=== PATIENT | male | born 1990 | race Caucasian/White ===

== ENCOUNTER 2016-10-12 21:15 | Emergency (ER) | payer OTHER ==
[2016-10-12 21:25] VITALS: BP 149/90
[2016-10-12] MEDS ORDERED: oxyCODONE/Acetamin 5/325 MG* TAB PO ONE (21:27)
--- NOTE | 2016-10-12 21:44 | ED ---
Upper Extremity Pain - HPI Summary HPI Summary: 26 M presents with right hand pain s/p falling on hand. He has a previous fracture to this hand and was just taken out of the cast 2 months ago. He was suppose to have surgery for a ligament but decided to do nonoperative course. He denies any numbness or tingling. He has not taken anything for pain. He is right handed. - History of Current Complaint Chief Complaint: EDExtremityUpper Stated Complaint: FALL/RIGHT ARM/HAND SWOLLEN Time Seen by Provider: 10/12/16 21:20 - Allergies/Home Medications Allergies/Adverse Reactions: Allergies Allergy/AdvReac Type Severity Reaction Status Date / Time No Known Allergies Allergy Verified 10/12/16 21:20 PMH/Surg Hx/FS Hx/Imm Hx Endocrine/Hematology History: Denies: Hx Anticoagulant Therapy Respiratory History: Denies: Hx Asthma Infectious Disease History: No Infectious Disease History: Denies: Traveled Outside the [place] in Last 30 Days - Family History Known Family History: Negative: Cardiac Disease - Social History Alcohol Use: None Substance Use Type: Reports: None Smoking Status (MU): Smoker, Current Status Unknown Review of Systems Negative: Fever Negative: Chest Pain Negative: Shortness Of Breath Positive: Myalgia - right hand, Edema - of right hand All Other Systems Reviewed And Are Negative: Yes Physical Exam Triage Information Reviewed: Yes Vital Signs On Initial Exam: Initial Vitals Temp Pulse Resp BP Pulse Ox 98.7 F 69 16 149/90 100 10/12/16 21:17 10/12/16 21:17 10/12/16 21:17 10/12/16 21:17 10/12/16 21:17 Vital Signs Reviewed: Yes Appearance: Positive: Well-Appearing Skin: Positive: Warm, Dry Head/Face: Positive: Normal Head/Face Inspection Eyes: Positive: Normal, Conjunctiva Clear ENT: Positive: Normal ENT inspection, Pharynx normal, TMs normal Respiratory/Lung Sounds: Positive: Clear to Auscultation, Breath Sounds Present Cardiovascular: Positive: Normal, RRR Musculoskeletal: Positive: Strength/ROM Intact - of right wrist, Limited @ - middle, ring, and pinky finger due to pain, Other - no snuff box tenderness, good pulses, capillary refill <2secs, tenderness to 3,4, and 5th metacarpel with edema present, sensation grossly intact Diagnostics - Vital Signs Vital Signs Temp Pulse Resp BP Pulse Ox 10/12/16 21:17 98.7 F 69 16 149/90 100 - Laboratory Lab Statement: Any lab studies that have been ordered have been reviewed, and results considered in the medical decision making process. - Radiology wrist/hand Xray Interpretation: Positive (See Comments) - REPORT AND IMPRESSION: Soft tissue swelling over the dorsum of the hand at the level of the metacarpals and metacarpal phalangeal joints. Negative for fracture or malalignment at the wrist or hand. If there is high index of suspicion for an occult scaphoid fracture repeat exam in 7 - 10 days would be suggested. Radiology Interpretation Completed By: Radiologist Course/Dx - Course Course Of Treatment: 26 M presents with pain and swelling in right hand s/p falling on it in the shower, has previous fracture of that hand a couple months ago. xray showed no fracture, no snuff box tenderness on exam so do not suspect scaphoid fracture, told if develops pain there to follow up for repeat imaging, instructed to follow up with ortho for evaulation of ligaments, patient agrees with plan - Diagnoses Differential Diagnosis/HQI/PQRI: Positive: Contusion, Fracture (Open), Strain, Sprain Provider Diagnoses: Injury of right hand Discharge - Discharge Plan Condition: Good Disposition: HOME Patient Education Materials: Hand Sprain (ED) Referrals: Manda HOLCOMB,Ángel Hilton [Primary Care Provider] - Seven Elizabeth MD [Medical Doctor] - Additional Instructions: Follow up with ortho for evaluation of ligaments when swelling goes down Take Tylenol or ibuprofen every 6 hours as needed for pain Apply ice, rest, elevate Return to ED if develop numbness, tingling, inability to move joint, or any new or worsening symptoms
--- NOTE | 2016-10-12 21:57 | RAD ---
INDICATION: RIGHT wrist pain post fall. Previous hand fracture. COMPARISON: None. TECHNIQUE: AP, lateral, and oblique views RIGHT wrist. AP, lateral, and oblique views RIGHT hand. REPORT AND IMPRESSION: Soft tissue swelling over the dorsum of the hand at the level of the metacarpals and metacarpal phalangeal joints. Negative for fracture or malalignment at the wrist or hand. If there is high index of suspicion for an occult scaphoid fracture repeat exam in 7 - 10 days would be suggested.
== END 2016-10-12 22:05 | disposition home or self-care (01) ==
LOC: ED 21:15
DX: S69.91XA Unspecified injury of right wrist, hand and finger(s), initial encounter (principal); W19.XXXA Unspecified fall, initial encounter; Y93.9 Activity, unspecified; Y92.9 Unspecified place or not applicable; Y99.9 Unspecified external cause status
CPT/HCPCS: 99282; A9270-GY

== ENCOUNTER 2016-12-27 21:13 | Emergency (ER) | payer OTHER ==
[2016-12-27] MEDS ORDERED: Ibuprofen TAB* 400 MG PO ONE (21:32)
--- NOTE | 2016-12-27 22:14 | RAD ---
Indication: Right wrist injury and pain 3 views of the wrist demonstrates no fracture. No other bone or joint abnormality is identified. IMPRESSION: NO FRACTURE OF THE WRIST IS NOTED.
--- NOTE | 2016-12-27 22:15 | RAD ---
Indication: Fall, right hand swelling. 4 views of the right hand demonstrates no fracture. No other bone or joint abnormality is noted. IMPRESSION: No fracture of the right hand is noted.
[2016-12-28 00:06] VITALS: BP 135/68
--- NOTE | 2016-12-28 00:44 | ED ---
Upper Extremity Pain - HPI Summary HPI Summary: Patient is incarcerated and presents with right wrist and hand pain after "falling in the shower" today. His hand is swollen and his wrist hurts to move. He has a previous fracture in this wrist the was treated with percutaneous pinning years ago. He denies N/T, warmth or redness. He was given ibuprofen at the skilled nursing without relief. - History of Current Complaint Chief Complaint: EDExtremityUpper Stated Complaint: R HAND INJURY Time Seen by Provider: 12/27/16 21:30 Hx Obtained From: Patient Mechanism Of Injury: Fall From A Standing Position Onset/Duration: Started Hours Ago Timing: Constant Severity Initially: Severe Severity Currently: Severe Pain Location: Wrist, Hand Character: Sharp, Aching Aggravating Factor(s): Movement Alleviating Factor(s): Nothing Associated Signs & Symptoms: Positive: Swelling Related History: Dominant Hand Right - Allergies/Home Medications Allergies/Adverse Reactions: Allergies Allergy/AdvReac Type Severity Reaction Status Date / Time No Known Allergies Allergy Verified 12/27/16 21:18 PMH/Surg Hx/FS Hx/Imm Hx Endocrine/Hematology History: Denies: Hx Anticoagulant Therapy Respiratory History: Denies: Hx Asthma Musculoskeletal History: Reports: Hx of Fracture(s) - right wrist - Surgical History Surgery Procedure, Year, and Place: Right wrist fracture with percutaneous pinning. Infectious Disease History: No Infectious Disease History: Denies: Traveled Outside the [place] in Last 30 Days - Family History Known Family History: Positive: None Negative: Cardiac Disease - Social History Occupation: Unemployed Lives: [facility] - skilled nursing Alcohol Use: None Substance Use Type: Reports: None Smoking Status (MU): Former Smoker Review of Systems Positive: Myalgia, Decreased ROM, Edema Negative: Bruising Negative: Weakness, Paresthesia, Numbness All Other Systems Reviewed And Are Negative: Yes Physical Exam Triage Information Reviewed: Yes Vital Signs On Initial Exam: Initial Vitals Temp Pulse Resp BP Pulse Ox 97 F 79 18 153/68 100 12/27/16 21:16 12/27/16 21:16 12/27/16 21:16 12/27/16 21:16 12/27/16 21:16 Vital Signs Reviewed: Yes Appearance: Positive: Well-Appearing, Well-Nourished, Pain Distress Skin: Positive: Warm, Skin Color Reflects Adequate Perfusion, Dry, Soft Head/Face: Positive: Normal Head/Face Inspection Eyes: Positive: EOMI, EDWARD, Conjunctiva Clear ENT: Positive: Hearing grossly normal Respiratory/Lung Sounds: Positive: Breath Sounds Present Cardiovascular: Positive: RRR Musculoskeletal: Positive: Limited @ - Patient unwilling to flex, extend, ulnar or radially deviate his wrist. Forms a loose fist., Pain @ - TTP dorsum of right hand over carpals and metacarpals; TTP right DRUJ, Edema Right - hand Neurological: Positive: Sensory/Motor Intact, Alert, Oriented to Person Place, Time, NV Bundle Intact Distally Psychiatric: Positive: Affect/Mood Appropriate AVPU Assessment: Alert Diagnostics - Vital Signs Vital Signs Temp Pulse Resp BP Pulse Ox 12/28/16 00:01 76 16 135/68 12/27/16 21:16 97 F 79 18 153/68 100 - Laboratory Lab Statement: Any lab studies that have been ordered have been reviewed, and results considered in the medical decision making process. - Radiology No standard instances Xray Interpretation: No Acute Changes Radiology Interpretation Completed By: Radiologist - CT No standard instances CT Interpretation: No Acute Changes CT Interpretation Completed By: Radiologist Course/Dx - Diagnoses Differential Diagnosis/HQI/PQRI: Positive: Arthritis, Bursitis, Contusion, Fracture (Closed), Hematoma, Strain, Sprain Provider Diagnoses: Contusion of right hand Discharge - Discharge Plan Condition: Stable Disposition: HOME Patient Education Materials: Contusion in Adults (ED) Referrals: Manda HOLCOMB,Ángel Hilton [Primary Care Provider] - Additional Instructions: Please use the splint to protect your hand and wrist as they heal. Elevate and ice your hand and wrist to reduce swelling and pain. Take ibuprofen 600mg three times daily with meals for the next 3-5 days to reduce pain and swelling as well. Follow-up with the facility provider if symptoms do not improve. Return to the emergency department if symptoms worsen.
--- NOTE | 2016-12-28 07:44 | RAD ---
INDICATION: History of recent fracture of right hand and removal of cast repeat trauma to the right hand and wrist. COMPARISON: Comparison is made with prior x-ray studies of the right hand and wrist of the same date. TECHNIQUE: Contiguous axial sections were obtained of the right hand and wrist. Images were reconstructed in the sagittal and coronal planes. FINDINGS: The fingers are flexed limiting the study. There is soft tissue swelling present along the dorsal aspect of the hand and wrist which is most prominent overlying the metacarpal bones. There is a small calcific density present adjacent to the medial aspect of the middle phalanx of the third finger. No fracture is seen. IMPRESSION: DIFFUSE SOFT TISSUE SWELLING, NO ACUTE FRACTURE IS SEEN. IF THE PATIENT'S SYMPTOMS PERSIST, RECOMMEND FOLLOW-UP IMAGING.
== END 2016-12-28 00:01 | disposition home or self-care (01) ==
LOC: ED 21:13
DX: M25.531 Pain in right wrist (principal); S60.221A Contusion of right hand, initial encounter; W19.XXXA Unspecified fall, initial encounter; Y93.9 Activity, unspecified; Y92.9 Unspecified place or not applicable; Y99.9 Unspecified external cause status
CPT/HCPCS: 99282; A9270-GY